=== PATIENT | female | born 1995 | race Caucasian/White ===

== ENCOUNTER 2018-08-16 12:03 | Emergency (ER) | payer BC ==
[2018-08-16 12:24] VITALS: BP 120/60
--- NOTE | 2018-08-16 12:37 | UC ---
UC General HPI - HPI Summary HPI Summary: wednesday, pt fell down about 6 steps injuring her L foot. - History of Current Complaint Chief Complaint: UCLowerExtremity Stated Complaint: S/P FALL-LEFT FOOT INJURY Time Seen by Provider: 08/16/18 12:18 Hx Obtained From: Patient Hx Last Menstrual Period: 07/2018 Timing: Constant Pain Intensity: 3 Associated Signs & Symptoms: Positive: Edema - L foot - Allergy/Home Medications Allergies/Adverse Reactions: Allergies Allergy/AdvReac Type Severity Reaction Status Date / Time No Known Allergies Allergy Verified 08/16/18 12:19 Home Medications: Home Medications Levonorgestrel-Ethin Estradiol [Lessina-28] 1 tab PO DAILY 08/16/18 [History Confirmed 08/16/18] PMH/Surg Hx/FS Hx/Imm Hx Previously Healthy: Yes - Surgical History Surgical History: Yes Surgery Procedure, Year, and Place: ovarian cyst removal - Family History Known Family History: Positive: Non-Contributory - Social History Alcohol Use: None Substance Use Type: None Smoking Status (MU): Never Smoked Tobacco Review of Systems All Other Systems Reviewed And Are Negative: No Constitutional: Negative: Fever Musculoskeletal: Positive: Edema - L foot with brusing and swelling Neurological: Negative: Weakness, Paresthesia, Numbness Physical Exam Triage Information Reviewed: Yes Appearance: Well-Appearing Vital Signs: Initial Vital Signs Temp 98.2 F 08/16/18 12:20 Pulse 81 08/16/18 12:20 Resp 16 08/16/18 12:20 BP 120/60 08/16/18 12:20 Pulse Ox 100 08/16/18 12:20 Vital Signs Reviewed: Yes Eyes: Positive: Conjunctiva Clear Respiratory: Positive: No respiratory distress Cardiovascular: Positive: RRR Musculoskeletal: Positive: Other: - LLE: hip, knee, achilles and ankle are non tender. Dorsal foot has some mild swelling, bruising and tenderness over the 3rd -5th metatarsals and digits. the foot has truman s/v/m function. Neurological: Positive: Alert Psychological: Positive: Age Appropriate Behavior Skin Exam: Normal Skin: Negative: Rashes Diagnostics - Radiology No standard instances Radiology Interpretation Completed By: Radiologist - IMPRESSION: POSSIBLE NONDISPLACED FRACTURE OF THE DISTAL PHALANX OF THE FOURTH TOE. Course/Dx - Differential Dx - Multi-Symptom Differential Diagnoses: Other - no concern for infection. no dislocation on xray. - Diagnoses Provider Diagnosis: Contusion of foot, Fracture of toe of left foot Discharge - Sign-Out/Discharge Documenting (check all that apply): Patient Departure All imaging exams completed and their final reports reviewed: Yes - Discharge Plan Condition: Stable Disposition: HOME Patient Education Materials: Foot Contusion (ED), Toe Fracture (ED) Referrals: Jaspreet Romero MD [Medical Doctor] - 7 Days - Billing Disposition and Condition Condition: STABLE Disposition: Home
== END 2018-08-16 13:22 | disposition home or self-care (01) ==
LOC: UCCORT 12:03
DX: S92.535A Nondisplaced fracture of distal phalanx of left lesser toe(s), initial encounter for closed fracture (principal); S90.32XA Contusion of left foot, initial encounter; W10.9XXA Fall (on) (from) unspecified stairs and steps, initial encounter; Y92.9 Unspecified place or not applicable
CPT/HCPCS: 99202; G0463